=== PATIENT | female | born 1985 | race African-American/Black ===

== ENCOUNTER 2019-02-14 16:45 | Emergency (ER) | payer OTHER ==
[2019-02-14] MEDS ORDERED: Diazepam TAB(*) 5 MG PO ONE (17:02)
[2019-02-14] MEDS ORDERED: Ketorolac *IM* INJ* 60 MG/2 ML VIAL IM ONE (17:02)
[2019-02-14] MEDS ORDERED: Lidocaine PATCH 5%* 1 PATCH TRANSDERM SCH (17:03)
--- NOTE | 2019-02-14 17:03 | ED ---
Back Pain - HPI Summary HPI Summary: This pt is a 33 y/o female presenting to [facility] c/o lower back pain s/p work related injury today 20 minutes [employer] WORK[employer]. Pt reports she works in [facility] and was assisting a 375 lbs resident to the floor. She states she safely lowered the resident to the floor but in the process of it she hurt her back. Pt notes she didn't have any help. She reports her pain is more on the left than the right lower back. Her pain is aggravated with movement and sitting down. Denies numbness, tingling, weakness in lower extremities, bowel or urinary incontinence /dysfunction. 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 She states she takes muscle relaxants, cyclobenzaprine, for her back. She admits to smoking sometimes. 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 - History of Current Complaint Chief Complaint: EDBackInjuryPain Stated Complaint: BACK PAIN PER PT Time Seen by Provider: 02/14/19 16:57 Hx Obtained From: Patient Onset/Duration: Sudden Onset, Lasting Weeks Onset/Duration: Started Hours Ago Timing: Lasting Hours Back Pain Location: Is Discrete @ - lower back Severity Currently: Severe Pain Intensity: 9 Pain Scale Used: 0-10 Numeric Aggravating Symptom(s): Movement, Other - sitting down Alleviating Symptom(s): Rest Associated Signs And Symptoms: Negative: Fever, Weakness, Numbness, Tingling, Bladder Incontinence, Bowel Incontinence Related History: Occupational Injury - Allergies/Home Medications Allergies/Adverse Reactions: Allergies Allergy/AdvReac Type Severity Reaction Status Date / Time No Known Allergies Allergy Verified 02/14/19 16:50 PMH/Surg Hx/FS Hx/Imm Hx Endocrine/Hematology History: Denies: Hx Diabetes Cardiovascular History: Denies: Hx Hypertension Musculoskeletal History: Reports: Other Musculoskeletal History - sciatica Sensory History: Denies: Hx Contacts or Glasses Opthamlomology History: Denies: Hx Contacts or Glasses - Surgical History Surgery Procedure, Year, and Place: hx of spontanious brain bleed Infectious Disease History: No Infectious Disease History: Denies: Traveled Outside the [place] in Last 30 Days - Family History Known Family History: Positive: Non-Contributory Negative: Cardiac Disease, Hypertension - Social History Alcohol Use: Rare Substance Use Type: Reports: None Smoking Status (MU): Light Every Day Tobacco Smoker Review of Systems Negative: Fever, Chills Negative: Erythema Negative: Sore Throat Negative: Chest Pain Negative: Shortness Of Breath, Cough Negative: Abdominal Pain, Vomiting, Nausea Negative: dysuria, hematuria Musculoskeletal: Other - POSITIVE: left lower back pain Negative: Myalgia, Edema Negative: Rash Neurological: Other - NEGATIVE: dizziness Negative: Weakness, Paresthesia, Numbness All Other Systems Reviewed And Are Negative: Yes Physical Exam - Summary Physical Exam Summary: Constitutional: Well-developed, Well-nourished, Alert. (-) Distressed Skin: Warm, Dry HENT: Normocephalic; Atraumatic Eyes: Conjunctiva normal Neck: Musculoskeletal ROM normal neck. (-) JVD, (-) Stridor, (-) Tracheal deviation Cardio: Rhythm regular, rate normal, Heart sounds normal; Intact distal pulses; The pedal pulses are 2+ and symmetric. Radial pulses are 2+ and symmetric. (-) Murmur Pulmonary/Chest wall: Effort normal. (-) Respiratory distress, (-) Wheezes, (-) Rales Abd: Soft, (-) Tenderness, (-) Distension, (-) Guarding, (-) Rebound Musculoskeletal: (-) Edema Lymph: (-) Cervical adenopathy Neuro: Alert, Oriented x3 Psych: Mood and affect Normal Triage Information Reviewed: Yes Vital Signs On Initial Exam: Initial Vitals Temp Pulse Resp BP Pulse Ox 98.3 F 110 16 133/93 100 02/14/19 16:46 02/14/19 16:46 02/14/19 16:46 02/14/19 16:46 02/14/19 16:46 Vital Signs Reviewed: Yes Procedures - Sedation Patient Received Moderate/Deep Sedation with Procedure: No Diagnostics - Vital Signs Vital Signs Temp Pulse Resp BP Pulse Ox 02/14/19 16:46 98.3 F 110 16 133/93 100 - Laboratory Lab Statement: Any lab studies that have been ordered have been reviewed, and results considered in the medical decision making process. 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 Pt reports she works in [employer] and was assisting a 375 lbs resident to the floor. She states she safely lowered the resident to the floor but in the process of it she hurt her back. Pt notes she didn't have any help. She reports her pain is more on the left than the right lower back. Her pain is aggravated with movement and sitting down. Denies numbness, tingling, weakness in lower extremities, bowel or urinary incontinence/dysfunction. In the ED course the pt was given Valium, Toradol injection, lidocaine patch. Pt will be discharged home with follow up from her PCP in 2-3 days. Pt was given prescriptions for Valium, lidocaine patch , naproxen. She was instructed to return to the ED for any worsening or new symptoms. - Diagnoses Provider Diagnoses: Lumbar strain Discharge ED - Sign-Out/Discharge Documenting (check all that apply): Patient Departure - Discharge home - Discharge Plan Condition: Stable Disposition: HOME Prescriptions: Diazepam TAB(*) [Valium TAB(*)] 5 mg PO Q8H PRN #10 tab MDD 3 PRN Reason: Pain - Severe Lidocaine PATCH 5%* [Lidoderm 5% Patch*] 1 patch TRANSDERM DAILY #14 patch Naproxen TAB* [Naprosyn 250 mg TAB*] 500 mg PO Q8H PRN #30 tab PRN Reason: Pain - Severe Patient Education Materials: Low Back Strain (ED) Forms: *Work Release Referrals: Nidia Benz NP [Primary Care Provider] - Additional Instructions: Follow up with your primary care provider in 2-3 days. RETURN TO THE EMERGENCY DEPARTMENT FOR CHANGING OR WORSENING SYMPTOMS. - Attestation Statements Document Initiated by Scribe: Yes Documenting Scribe: Juli Powell Provider For Whom Scribe is Documenting (Include Credential): Nino Cheatham MD Scribe Attestation: IJuli, scribed for Nino Cheatham MD on 02/14/19 at 1733. Status of Scribe Document: Viewed
[2019-02-14 18:39] VITALS: BP 116/72
[2019-02-14] MEDS ORDERED: Lidocaine Patch REMOVE* 1 NOTE MISC SCH (21:00)
== END 2019-02-14 18:36 | disposition home or self-care (01) ==
LOC: ED 16:45
DX: S39.012A Strain of muscle, fascia and tendon of lower back, initial encounter (principal); X50.0XXA Overexertion from strenuous movement or load, initial encounter; Y93.F9 Activity, other caregiving; Y92.239 Unspecified place in hospital as the place of occurrence of the external cause; F17.200 Nicotine dependence, unspecified, uncomplicated
CPT/HCPCS: 96372; 99283; A9270-GY; J1885

== ENCOUNTER 2022-12-21 10:16 | Observation (INO) ==
[2022-12-21] MEDS ORDERED: Ondansetron 4 mg VIAL 2 MG/ML 2 ml VIAL IV ONE (10:35)
[2022-12-21] MEDS ORDERED: Lactated Ringers 1000 ml BAG 1,000 ML IV ONE (10:35)
[2022-12-21 11:08] LABS: ABS Basophils 0.1 10^3/uL (0.0-0.1); ABS Lymphocytes 1.1 10^3/uL (1.0-4.8); ABS Monocytes 0.4 10^3/uL (0.0-0.9); ABS Neutrophils 12.1 10^3/uL (1.5-7.6); Eosinophil % 0.2 %; Hematocrit 39.4 % (35-45); Hemoglobin 13.7 g/dL (11.5-14.3); Lymphocyte % 8.1 %; Mean Corpuscular Hemoglobin 32.7 pg (27-33); Mean Corpuscular Hgb Conc 34.6 g/dL (31-36); Mean Corpuscular Volume 94.3 fL (80-97); Mean Platelet Volume 7.7 fL (7.5-11.2); Platelet Count 344 10^3/uL (150-450); Red Blood Count 4.18 10^6/uL (3.63-4.92); Red Cell Distribution Width 12.6 % (12-17); White Blood Count 13.9 10^3/uL (3.8-11.8)
[2022-12-21 11:35] LABS: HCG Pregnancy < 0.60 mIU/mL
[2022-12-21 11:59] LABS: ALT 14 U/L (7-52); AST 16 U/L (13-39); Albumin 4.5 g/dL (3.2-5.2); Albumin/Globulin Ratio 1.7 (1-3); Alkaline Phosphatase 77 U/L (35-149); Anion Gap 9 mmol/L (2-16); Blood Urea Nitrogen 9 mg/dL (6-24); CO2 Carbon Dioxide 23 mmol/L (22-32); Calcium 9.3 mg/dL (8.6-10.3); Chloride 109 mmol/L (101-111); Creatinine, Serum 0.67 mg/dL (0.51-0.95); Globulin 2.7 g/dL (2-4); Glucose 168 mg/dL (70-100); Lipase < 10 U/L (11.0-82.0); Potassium 4.1 mmol/L (3.5-5.0); Sodium 141 mmol/L (135-145); Total Protein 7.2 g/dL (6.4-8.9); eGFR CKD-EPI 113.9 (>60)
[2022-12-21] MEDS ORDERED: Iohexol 300 (CONTRAST) 10 ML SDV IV ONE (12:32)
[2022-12-21] MEDS ORDERED: NS 0.9% 1000 ml BAG 1,000 ML IV ONE ×2 (12:34→15:18)
[2022-12-21] MEDS ORDERED: Metoclopramide 5 MG/ML VIAL (10 mg) IV SLOW PU ONE (12:34)
[2022-12-21 12:49] LABS: Urine Appearance Cloudy; Urine Bilirubin Negative (Negative); Urine Blood Negative (Negative); Urine Color Amber; Urine Glucose 1+(50 mg/dL) (Negative); Urine Ketones 1+ (Negative); Urine Nitrite Negative (Negative); Urine Protein 2+(100 mg/dL) (Negative); Urine Specific Gravity 1.027 (1.002-1.030); Urine Urobilinogen Negative (Negative)
[2022-12-21 12:56] LABS: Urine Amorphous Crystals Present (Absent); Urine Bacteria 1+ (Absent); Urine Red Blood Cell Trace(0-2/hpf) (Absent); Urine Squamous Epithelial Cell Present (Absent); Urine White Blood Cell Trace(0-5/hpf) (Absent)
[2022-12-21] MEDS ORDERED: Prochlorperazine 5 mg/ml 2 ml VIAL (10 mg) IV ONE (15:17)
[2022-12-21 15:39] LABS: Magnesium 1.7 mg/dL (1.9-2.7)
[2022-12-21] MEDS ORDERED: Magnesium Sulfate IV 1GM/100ML 1 GM/100 ML BAG IV ONE (15:42)
[2022-12-21 15:53] LABS: Urine Benzodiazepine Screen None Detected (None Detect); Urine Cannabinoids Screen Presumptive Positive (None Detect); Urine Opiates Screen None Detected (None Detect)
[2022-12-21 16:36] LABS: TSH Ultra Thyroid Stim Horm 1.95 mcIU/mL (0.34-5.60)
[2022-12-21 17:34] LABS: High Sensitivity Troponin 1 Hr 4 pg/mL (<15)
[2022-12-21] MEDS ORDERED: Trimethobenzamide *IM* 100 mg/ml 2 ml VIAL (200 mg) IM PRN (18:02)
[2022-12-21] MEDS ORDERED: Ondansetron 4 mg VIAL 2 MG/ML 2 ml VIAL IV PRN (18:02)
[2022-12-22 10:49] VITALS: BP 132/89
== END 2022-12-22 14:15 | disposition home or self-care (01) ==
LOC: EDHOLD 10:16 → ED 10:16 → MEDTELE 21:16
PROVIDERS: ADMIT Internal Medicine; ATTEND Internal Medicine